=== PATIENT | female | born 1940 | race Caucasian/White ===

== ENCOUNTER 2017-12-13 16:20 | Emergency (ER) | payer MEDICARE, BC ==
[~2017-12-13] VITALS: Ht 157.5 cm; Wt 84.0 kg
[~2017-12-13 16:20] MED LIST: "\\\"WATER PILL\\\""; AMLO5TAB22 PO; LORTA5 PO; METO50TA PO
[2017-12-13 16:29] VITALS: BP 118/70; PULSE 78; RESP 18; TEMP 98.1; O2SAT 93
[2017-12-13 17:08] VITALS: O2SAT 96
--- NOTE | 2017-12-13 17:10 | PD ---
HPI Chief Complaint: Respiratory Symptoms Time Seen by Provider: 16:47 Travel History International Travel<30 days: No Contact w/Intl Traveler<30days: No Traveled to known affect area: No History of Present Illness HPI Patient is a 77-year-old female presents to the emergency department with her daughter for evaluation of shortness of breath progressive over the past month to year. Patient has a home health nurse who noticed that her ankles are swollen as well and that she had been complaining of some reflux symptoms to center to the emergency department for evaluation. Patient states she saw diabetes education coordinator for a "checkup" 2 years ago and had a stress test that time which was negative. Per the patient's daughter the patient is very reluctant to discuss anything and will downplay everyone of her symptoms that she does not have to see the doctor. She went to her primary care physician yesterday complaining of leg cramping and leg pain which she states is also been going on for years and her physician referred her to a optical glass inspector. Patient states that she did not mention her shortness of breath to her primary care physician yesterday but her daughter expresses displeasure at her primary care physician' s treatment of her. The patient denies any chest pain, denies any orthopnea but states after taking only a few steps she becomes significantly short of breath. PFSH Past Medical History Herniated Disk: Yes Hypertension: Yes Tetanus Vaccination: Unknown Influenza Vaccination: Yes ?: Not Past Surgical History Hysterectomy: Yes Social History Alcohol Use: No Tobacco Use: No Substance Use: No Allergies-Medications (Allergen,Severity, Reaction): Coded Allergies: No Known Allergies (Unverified , 02/06/14) Reported Meds & Prescriptions Reported Meds & Active Scripts Active Reported Vitamin D3 (Cholecalciferol) 2,000 Unit Cap 2,000 Units PO DAILY Hydrochlorothiazide 25 Mg Tab 25 Mg PO DAILY Metoprolol Tartrate 50 Mg Tab 50 Mg PO BID Losartan (Losartan Potassium) 100 Mg Tab 100 Mg PO DAILY Gabapentin 300 Mg Cap 300 Mg PO HS Doxazosin (Doxazosin Mesylate) 2 Mg Tab 2 Mg PO HS Review of Systems Except as stated in HPI: all other systems reviewed are Neg Physical Exam Narrative GENERAL: Well-developed well-nourished, no obvious distress SKIN: Focused skin assessment warm/dry. HEAD: Atraumatic. Normocephalic. EYES: Pupils equal and round. No scleral icterus. No injection or drainage. ENT: No nasal bleeding or discharge. Mucous membranes pink and moist. NECK: Trachea midline. No JVD. CARDIOVASCULAR: Regular rate and rhythm. No murmurs no gallops no rubs, 2+ bilateral equal pulses in all 4 extremities. RESPIRATORY: No accessory muscle use. Clear to auscultation. Breath sounds equal bilaterally. No wheezes no rales no rhonchi., No increased work of breathing, speaks in full sentences. Saturations between 94-98%. GASTROINTESTINAL: Abdomen soft, non-tender, nondistended. Hepatic and splenic margins not palpable. MUSCULOSKELETAL: No obvious deformities. No clubbing. No cyanosis. There is no edema of her lower extremities per NEUROLOGICAL: Awake and alert. No obvious cranial nerve deficits. Motor grossly within normal limits. Normal speech. PSYCHIATRIC: Appropriate mood and affect; insight and judgment normal. Data Data Last Documented VS Vital Signs Date Time Temp Pulse Resp B/P (MAP) Pulse Ox O2 Delivery O2 Flow Rate FiO2 12/13/17 19:18 74 18 131/80 (97) 95 12/13/17 16:29 98.1 Orders Orders Electrocardiogram (12/13/17 17:05) B-Type Natriuretic Peptide (12/13/17 17:05) Ckmb (Isoenzyme) Profile (12/13/17 17:05) Complete Blood Count With Diff (12/13/17 17:05) Comprehensive Metabolic Panel (12/13/17 17:05) D-Dimer (12/13/17 17:05) Magnesium (Mg) (12/13/17 17:05) Prothrombin Time / Inr (Pt) (12/13/17 17:05) Act Partial Throm Time (Ptt) (12/13/17 17:05) Troponin I (12/13/17 17:05) Chest, Single Ap (12/13/17 17:05) Ecg Monitoring (12/13/17 17:05) Iv Access Insert/Monitor (12/13/17 17:05) Oximetry (12/13/17 17:05) Oxygen Administration (12/13/17 17:05) Sodium Chloride 0.9% Flush (Ns Flush) (12/13/17 17:15) Ed Discharge Order (12/13/17 19:07) Labs Laboratory Tests Test 12/13/17 17:19 White Blood Count 6.8 TH/MM3 Red Blood Count 4.65 MIL/MM3 Hemoglobin 13.2 GM/DL Hematocrit 39.5 % Mean Corpuscular Volume 84.9 FL Mean Corpuscular Hemoglobin 28.4 PG Mean Corpuscular Hemoglobin Concent 33.5 % Red Cell Distribution Width 14.2 % Platelet Count 258 TH/MM3 Mean Platelet Volume 8.3 FL Neutrophils (%) (Auto) 58.0 % Lymphocytes (%) (Auto) 30.8 % Monocytes (%) (Auto) 8.1 % Eosinophils (%) (Auto) 2.5 % Basophils (%) (Auto) 0.6 % Neutrophils # (Auto) 3.9 TH/MM3 Lymphocytes # (Auto) 2.1 TH/MM3 Monocytes # (Auto) 0.6 TH/MM3 Eosinophils # (Auto) 0.2 TH/MM3 Basophils # (Auto) 0.0 TH/MM3 CBC Comment DIFF FINAL Differential Comment Prothrombin Time 10.2 SEC Prothromb Time International Ratio 1.0 RATIO Activated Partial Thromboplast Time 24.9 SEC D-Dimer Quantitative (PE/DVT) 0.47 MG/L FEU Blood Urea Nitrogen 22 MG/DL Creatinine 0.91 MG/DL Random Glucose 130 MG/DL Total Protein 6.9 GM/DL Albumin 3.4 GM/DL Calcium Level 9.1 MG/DL Magnesium Level 2.1 MG/DL Alkaline Phosphatase 72 U/L Aspartate Amino Transf (AST/SGOT) 10 U/L Alanine Aminotransferase (ALT/SGPT) 16 U/L Total Bilirubin 0.2 MG/DL Sodium Level 143 MEQ/L Potassium Level 3.6 MEQ/L Chloride Level 107 MEQ/L Carbon Dioxide Level 27.4 MEQ/L Anion Gap 9 MEQ/L Estimat Glomerular Filtration Rate 60 ML/MIN Total Creatine Kinase 53 U/L Troponin I LESS THAN 0.02 NG/ML B-Type Natriuretic Peptide 26 PG/ML [facility] Medical Decision Making Medical Screen Exam Complete: Yes Emergency Medical Condition: Yes Interpretation(s) EKG shows sinus rhythm left axis deviation early R-wave transition. Intervals within normal limits. Rate is 78, no concerning ST segment changes. Borderline EKG Differential Diagnosis ACS unlikely, FL unlikely, chronic CHF, pneumonia, PE. Narrative Course Patient was roomed in the emergency department, her daughter is quite worried about the patient stating that she gets shortness of breath after only a few steps. I see woman who is morbidly obese but in not congestive heart failure, blood work supports this, troponin negative, BNP normal, chest x-ray negative. Patient has no pedal edema. On revisit the patient daughter also states that she has been having some epigastric burning sensation over the past year. She is wondering if this epigastric pain is actually reflux or something else. Was at this point I discussed with the patient and her daughter the laboratory workup here including d-dimer which was below institutional cutoff coupled with low index of suspicion essentially rules out pulmonary embolism, chest x-ray negative, blood work negative. Discussed with her her oxygen saturation has been acceptable on room air. The patient is not in any obvious shortness of breath or respiratory difficulty. I had offered the patient and the daughter the chance to stay in the chest pain observation center for stress testing given the epigastric burning discomfort. The patient is refusing. Her symptoms are very atypical for ACS or FL and certainly they are chronic in nature by her history and the patient would rather follow-up with her diabetes education coordinator Dr. rodriguez which she states she can do next week which I think is a reasonable follow-up for her. Patient ablated from the emergency department in no obvious distress Diagnosis Primary Impression: Shortness of breath Referrals: Cuong Cruz MD Disposition: 01 DISCHARGE HOME Condition: Stable Tyler Sweeney MD Dec 13, 2017 17:10
[2017-12-13] MEDS ORDERED: LOSA100T PO (17:11)
[2017-12-13] MEDS ORDERED: VITA2000 PO (17:11)
[2017-12-13] MEDS ORDERED: HYDR25TA5 PO (17:11)
[2017-12-13] MEDS ORDERED: DOXA1TAB35 PO (17:11)
[2017-12-13] MEDS ORDERED: GABA300C5 PO (17:11)
[2017-12-13] MEDS ORDERED: METO50TA PO (17:11)
[2017-12-13] MEDS ORDERED: SODIUM CHLORIDE 0.9% FLUSH 10 ML FLUSH IVF PRN (17:15)
--- NOTE | 2017-12-13 17:28 | RADRPT ---
EXAM DATE/TIME: 12/13/2017 17:15 [facility] COMPARISON: No previous studies available for comparison. INDICATIONS : Chest pain and shortness of breath. MEDICAL HISTORY : Hypertension. Herniated disk SURGICAL HISTORY : Hysterectomy. ENCOUNTER: Initial ACUITY: 1 month PAIN SCORE: 5/10 LOCATION: Bilateral chest FINDINGS: The lung volumes are diminished. Cardiomegaly and aortic calcification. Osseous structures are intact . High riding humeral head on the right. No fractures. Clear lungs. CONCLUSION: Shallow lung volumes are noted. Mike Mishra MD on December 13, 2017 at 17:26 Board Certified Radiologist. This report was verified electronically.
[2017-12-13 17:30] LABS: AUTOMATED NEUTROPHIL # 3.9 TH/MM3 (1.8-7.7); BASOPHIL % 0.6 % (0.0-2.0); EOSINOPHIL # 0.2 TH/MM3 (0-0.4); EOSINOPHIL % 2.5 % (0.0-4.0); HEMATOCRIT 39.5 % (35.0-46.0); HEMOGLOBIN 13.2 GM/DL (11.6-15.3); LYMPH % 30.8 % (9.0-44.0); LYMPHOCYTE # 2.1 TH/MM3 (1.0-4.8); MEAN CELL VOLUME 84.9 FL (80.0-100.0); MEAN CORPUSCULAR HEMOGLOBIN 28.4 PG (27.0-34.0); MEAN CORPUSCULAR HGB CONC 33.5 % (32.0-36.0); MEAN PLATELET VOLUME 8.3 FL (7.0-11.0); MONO % 8.1 % (0.0-8.0); MONOCYTE # 0.6 TH/MM3 (0-0.9); PLATELET COUNT 258 TH/MM3 (150-450); RED BLOOD COUNT 4.65 MIL/MM3 (4.00-5.30); RED CELL DISTRIBUTION WIDTH 14.2 % (11.6-17.2); WHITE BLOOD COUNT 6.8 TH/MM3 (4.0-11.0)
[2017-12-13 17:41] LABS: CHLORIDE 107 MEQ/L (98-107); SODIUM (NA) 143 MEQ/L (136-145)
[2017-12-13 17:46] LABS: CALCIUM 9.1 MG/DL (8.5-10.1)
[2017-12-13 17:47] LABS: ALBUMIN 3.4 GM/DL (3.4-5.0); BICARBONATE 27.4 MEQ/L (21.0-32.0); GLUCOSE,RANDOM 130 MG/DL (74-106); MAGNESIUM 2.1 MG/DL (1.5-2.5)
[2017-12-13 17:50] LABS: ALT (GPT) 16 U/L (10-53); AST (GOT) 10 U/L (15-37); CREATININE 0.91 MG/DL (0.50-1.00); GLOMERULAR FILTRATION RATE 60 ML/MIN (>89)
[2017-12-13 17:51] LABS: BLOOD UREA NITROGEN 22 MG/DL (7-18)
[2017-12-13 17:52] LABS: TOTAL BILIRUBIN ADULT 0.2 MG/DL (0.2-1.0); TOTAL PROTEIN 6.9 GM/DL (6.4-8.2)
[2017-12-13 17:53] LABS: ALKALINE PHOSPHATASE 72 U/L (45-117)
[2017-12-13 17:55] LABS: TROPONIN I LESS THAN 0.02 NG/ML (0.02-0.05)
[2017-12-13 18:31] LABS: PROTHROMBIN TIME - PATIENT 10.2 SEC (9.8-11.6)
[2017-12-13 18:34] LABS: D-DIMER 0.47 MG/L FEU (0.00-0.50)
[2017-12-13 19:18] VITALS: BP 131/80
--- NOTE | 2017-12-14 09:37 | EKG ---
Date Performed: 12/13/2017 Time Performed: 16:40:40 PTAGE: 77 years EKG: Sinus rhythm POSSIBLE RIGHT VENTRICULAR CONDUCTION DELAY LEFT VENTRICULAR HYPERTROPHY AND ST-T CHANGE ABNORMAL EC G NO PREVIOUS TRACING DOCTOR: Errol Ayers Interpretating Date/Time 12/14/2017 09:36:41
== END 2017-12-13 19:21 | disposition home or self-care (01) ==
LOC: PHED 16:20
DX: R06.02 Shortness of breath (principal); I10 Essential (primary) hypertension; Z79.899 Other long term (current) drug therapy
CPT/HCPCS: 71045; 80053; 82550; 83735; 83880; 84484; 85025; 85379; 85610; 85730; 93005; 99285